=== PATIENT | female | born 1995 | race Caucasian/White ===

== ENCOUNTER 2016-11-14 00:35 | Emergency (ER) | payer SELFPAY ==
[~2016-11-14] VITALS: Ht 165.1 cm; Wt 64.4 kg
[2016-11-14 00:36] VITALS: BP 134/80
--- NOTE | 2016-11-14 00:43 | NUR ---
PT C/O RASHES ON HER FACE AND CHEST AREA FOR 2 DAYS
--- NOTE | 2016-11-14 01:09 | NUR ---
Patient being evaluated by DR. HENDERSON at bedside.
[2016-11-14 01:30] VITALS: BP 129/75
--- NOTE | 2016-11-14 01:30 | NUR ---
Patient discharged with v/s stable BY DR. HENDERSON. Written and verbal after care instructions given and explained. Patient alert, oriented and verbalized understanding of instructions. Ambulatory with steady gait. All questions addressed prior to discharge. ID band removed. Patient advised to follow up with PMD. Rx of DOXYCYCLINE 100MG CAPSULE PO given. Patient educated on indication of medication including possible reaction and side effects. Opportunity to ask questions provided and answered.
== END 2016-11-14 01:30 | disposition home or self-care (01) ==
LOC: MED 00:35
DX: L71.9 Rosacea, unspecified (principal)
CPT/HCPCS: 99283